=== PATIENT | female | born 1980 | race Caucasian/White ===

== ENCOUNTER 2017-07-05 20:41 | Emergency (ER) | payer MEDICAID ==
[~2017-07-05] VITALS: Ht 175.3 cm; Wt 61.2 kg
[2017-07-05 20:42] VITALS: BP 106/69
[2017-07-05] MEDS ORDERED: ROPI2TAB6 PO (21:10)
[2017-07-05] MEDS ORDERED: DIAZEPAM 5 MG TABLET ONE (21:13)
[2017-07-05] MEDS ORDERED: KETOROLAC 30 MG/1 ML ONE (21:13)
[2017-07-05] MEDS ORDERED: DIAZEPAM 5 MG TABLET PO ONE (21:30)
[2017-07-05] MEDS ORDERED: KETOROLAC 30 MG/1 ML IM ONE (21:30)
[2017-07-05] MEDS ORDERED: HYDROcodone/APAP 5/325 TABLET ONE (21:52)
[2017-07-05] MEDS ORDERED: HYDROcodone/APAP 5/325 TABLET PO ONE (22:00)
== END 2017-07-05 22:26 | disposition home or self-care (01) ==
LOC: ED 21:50
DX: S39.012A Strain of muscle, fascia and tendon of lower back, initial encounter (principal); G25.81 Restless legs syndrome; Z88.5 Allergy status to narcotic agent; X58.XXXA Exposure to other specified factors, initial encounter; Y93.E9 Activity, other interior property and clothing maintenance; Y92.89 Other specified places as the place of occurrence of the external cause; Y99.8 Other external cause status
CPT/HCPCS: 72110; 96372; 99284; J1885